=== PATIENT | male | born 1975 | race Two or more races ===

== ENCOUNTER 2020-06-04 22:05 | Emergency (ER) | payer SELFPAY ==
[~2020-06-04] VITALS: Ht 170.2 cm; Wt 89.8 kg
--- NOTE | 2020-06-04 22:17 | NUR ---
URINE COLLECTED AND SENT TO LAB
[2020-06-04 22:18] VITALS: BP 143/88
[2020-06-04 22:47] LABS: APPEARANCE,URINE CLEAR (CLEAR); BILIRUBIN,URINE NEGATIVE (NEGATIVE); BLOOD, URINE NEGATIVE Ery/uL (NEGATIVE); COLOR,URINE YELLOW (YELLOW); KETONES,URINE NEGATIVE (NEGATIVE); LEUKOCYTE ESTERASE ,URINE SMALL (NEGATIVE); NITRITE, URINE NEGATIVE (NEGATIVE); PH,URINE 6.5 (5.0-8.0); PROTEIN,URINE NEGATIVE (NEGATIVE); UGLUCOSE NEGATIVE (NEGATIVE); UROBILINOGEN,URINE 0.2 EU/dL (0.2)
[2020-06-04] MEDS ORDERED: CEFTRIAXONE 500 MG VIAL IM ONE (23:00)
[2020-06-04] MEDS ORDERED: AZITHROMYCIN 250 MG TABLET PO ONE (23:00)
[2020-06-04] MEDS ORDERED: CEFTRIAXONE 500 MG VIAL ONE (23:18)
[2020-06-04] MEDS ORDERED: LIDOCAINE /MPF 1% VIAL 5 ML VIAL ONE (23:18)
[2020-06-04] MEDS ORDERED: AZITHROMYCIN 250 MG TABLET ONE (23:18)
== END 2020-06-04 23:54 | disposition home or self-care (01) ==
LOC: ER 22:10
DX: A64 Unspecified sexually transmitted disease (principal); Z20.2 Contact with and (suspected) exposure to infections with a predominantly sexual mode of transmission
CPT/HCPCS: 81001; 87491; 87591; 96372; 99283; J0696; J3490; 81000-TC